=== PATIENT | female | born 1980 | race Caucasian/White ===

== ENCOUNTER 2021-04-10 18:27 | Emergency (ER) | payer MEDICAID ==
[~2021-04-10] VITALS: Ht 160 cm; Wt 54.4 kg
[2021-04-10] MEDS ORDERED: KETOROLAC TROMETHAMINE INJ 60 MG/2 ML VIAL IM ONE (19:00)
--- NOTE | 2021-04-10 19:09 | NUR ---
40 years old female alert, oriented x4 walking to er c/o headache x3 days.
[2021-04-10] MEDS ORDERED: KETOROLAC TROMETHAMINE INJ 30 MG/ML VIAL ONE (19:11)
--- NOTE | 2021-04-10 19:26 | NUR ---
report endorsed to nurse Kwan all questions answered.
--- NOTE | 2021-04-10 19:35 | NUR ---
URINE COLLECETED AND SENT TO LAB
--- NOTE | 2021-04-10 19:49 | NUR ---
PATIENT TAKEN TO CT
[2021-04-10] MEDS ORDERED: LORA-259 PO (20:30)
--- NOTE | 2021-04-10 20:39 | NUR ---
PT is medically stable for d/c. Patient discharged to home in stable condition. Written and verbal after care instructions given. Patient verbalizes understanding of instruction.
[2021-04-10 20:40] VITALS: BP 115/68
== END 2021-04-10 20:41 | disposition home or self-care (01) ==
LOC: ER 18:27
DX: R51.9 Headache, unspecified (principal); Z79.899 Other long term (current) drug therapy
CPT/HCPCS: 70450; 84703; 96372; 99284; J1885

== ENCOUNTER 2021-04-16 17:13 | Emergency (ER) | payer MEDICAID ==
[~2021-04-16] VITALS: Ht 160 cm; Wt 59.0 kg
[~2021-04-16 17:13] MED LIST: LORA-259 PO
[2021-04-16 17:21] VITALS: BP 102/62
[2021-04-16] MEDS ORDERED: diphenhydrAMINE HCL/ZINC ACET CREAM 28.3 GM TUBE TP PRN (17:30)
[2021-04-16] MEDS ORDERED: DIPHENHYDRAMINE HCL 12.5 MG/5 ML UDC PO ONE (17:30)
[2021-04-16] MEDS ORDERED: diphenhydrAMINE HCL 25 MG CAPSULE ONE (17:55)
--- NOTE | 2021-04-16 18:14 | NUR ---
Patient discharged to home in stable condition. Written and verbal after care instructions given. Patient verbalizes understanding of instruction.
== END 2021-04-16 18:15 | disposition home or self-care (01) ==
LOC: ER 17:20
DX: T63.481A Toxic effect of venom of other arthropod, accidental (unintentional), initial encounter (principal); L50.9 Urticaria, unspecified; Z79.899 Other long term (current) drug therapy; Y92.89 Other specified places as the place of occurrence of the external cause
CPT/HCPCS: 99283; Q0163

== ENCOUNTER 2024-01-05 21:29 | Emergency (ER) | payer MEDICAID, OTHER ==
[~2024-01-05] VITALS: Ht 160 cm; Wt 63.5 kg
[2024-01-05 22:27] VITALS: TEMP 98.3
[2024-01-05] MEDS ORDERED: IBUPROFEN 400 MG TABLET ONE (23:00)
[2024-01-05] MEDS: IBUPROFEN 400 MG TABLET PO ONE (23:03)
[2024-01-05 23:34] LABS: APPEARANCE,URINE SLIGHTLY CLOUDY (CLEAR); BILIRUBIN,URINE NEGATIVE (NEGATIVE); BLOOD, URINE 2+ Ery/uL (NEGATIVE); COLOR,URINE YELLOW (YELLOW); KETONES,URINE NEGATIVE (NEGATIVE); LEUKOCYTE ESTERASE ,URINE 2+ (NEGATIVE); NITRITE, URINE NEGATIVE (NEGATIVE); PROTEIN,URINE NEGATIVE (NEGATIVE); UGLUCOSE NEGATIVE (NEGATIVE); UROBILINOGEN,URINE 0.2 EU/dL (0.2)
[2024-01-05 23:35] LABS: ADD URINE CULTURE YES; BACTERIA,URINE Rare /HPF (None Seen); PREGNANCY TEST URINE QUAL NEGATIVE (NEGATIVE); SQUAMOUS EPITHELIAL CELL,UR Few /HPF (None Seen)
[2024-01-05] MEDS ORDERED: CEPH500C2 PO (23:59)
[2024-01-05] MEDS ORDERED: PHEN-704 PO (23:59)
[2024-01-06] MEDS ORDERED: CEPHALEXIN MONOHYDRATE 500 MG CAPSULE PO ONE (00:01)
[2024-01-06] MEDS: CEPHALEXIN MONOHYDRATE 500 MG CAPSULE PO ONE (00:06)
[2024-01-06 00:14] VITALS: BP 112/81; O2SAT 98
== END 2024-01-06 00:14 | disposition home or self-care (01) ==
LOC: ER 21:32
DX: N39.0 Urinary tract infection, site not specified (principal); E11.9 Type 2 diabetes mellitus without complications; R10.2 Pelvic and perineal pain; Z79.899 Other long term (current) drug therapy
CPT/HCPCS: 81001; 84703-TC; 87086-TC